=== PATIENT | male | born 1940 | race Caucasian/White ===

== ENCOUNTER → 2017-11-02 | Day surgery (SDC) | payer MEDICARE ==
[~2017-11-02] VITALS: Ht 170.2 cm; Wt 87.6 kg
[~2017-11-02] MED LIST: *RESP: ALBUTEROL 2.5 MG/3 ML NEB (PRN) PERIprocedural Use ONLY NEB ONE; ACETAMINOPHEN/HYDROcodone 325 MG/7.5 MG TAB ONE; ASPI1TAB57 PO; BUPIVACAINE/EPINEPHRINE 0.25% 50 ML VIAL ONE; BUPIVACAINE/EPINEPHRINE 0.5% PF 30 ML VIAL ONE; CHLORHEXIDINE GLUCONATE 0.12% 15 ML CUP ONE; CHLORHEXIDINE GLUCONATE 2 % 1 PACK (2 CLOTHS) TOPICAL PRN; CLINDAMYCIN 600 MG/NS 100 ML IV SCH; DEXAMETHASONE SOD PHOS 4 MG/ML VIAL IV ONE; DO NOT ADM ANY ANTICOAGULANT DRUGS PRN; FISH1200 PO; GABA300C5 PO; GLYCOPYRROLATE 1 MG/5 ML SYRINGE IV PUSH ONE; INSULIN HUMAN REGULAR 1,000 UNITS/10 ML VIAL SQ PRN; LACTATED RINGER'S 1000 ML INJ 1,000 ML IV ONE; LACTATED RINGER'S 1000 ML IV PRN; LIDOCAINE 2%/EPINEPHrine PF 1:200,000 20ML SDV ONE; LIDOCAINE HCL 1% PF 5 ML SYRINGE OTHER ONE; MELA5 PO; METO50TA PO; METOPROLOL TARTRATE 25 MG TAB PO PRN; OCUVTAB4 PO; ONDANSETRON HCL 4 MG/2 ML VIAL IV ONE; PHENYLEPH/NS 1000 MCG/10 ML SYR IV ONE; POVIDONE IODINE 5% (ANTISEPSIS KIT) 4 APPLICATIONS EACH NARE PRN; ROCURONIUM INJ 50 MG/5 ML SYRINGE IV PUSH ONE; SIMV20TA PO; SODI1TAB PO; SODIUM CHLORID 0.9% 500 ML IV PRN; SODIUM CHLORIDE 0.9% INJ 100 ML ONE; TERA5CAP3 PO
--- NOTE | 2017-11-02 12:03 | MH ---
cc: Onofre Quan DMD DATE OF ADMISSION: 11/02/2017 Mr. Sosa is a 77-year-old male who has two lesions on his lateral border of his tongue. The one on the left side is whitish on the left side of the lateral tongue, is smooth, flat, is about 5 cm x 1.5 cm. 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 The biopsy was done in 09/2017. Now we have waited for the site to heal completely, and now we are ready for the excision of this lesion. He also has another lesion that is similar in size, smaller, about 5 mm x 5 mm, which is also whitish on the right lateral border of the tongue. We will plan for the excisional biopsy of that lesion also today. Benefits, risks, indications of the procedure, procedure in detail, and the options of no treatment all discussed with this patient. Risks not limited to any postop pain, infection or bleeding; damage to the adjacent soft tissue, hard tissue; anesthesia complications; recurrence of the lesion; speech/sensory changes/motor changes of the tongue and soft tissues. All questions and concerns were addressed. PAST MEDICAL HISTORY: Hypertension, high cholesterol, kidney disease, history of shingles. PAST SURGICAL HISTORY: Gallbladder removal, heart surgery with stent placement, eye surgery. The left kidney was removed. History of kidney stones. Hernia repair. MEDICATIONS: Aspirin, terazosin, simvastatin, melatonin, gabapentin, triamcinolone acetonide, salt tablet, PreserVision and fish oil. ALLERGIES: TO PENICILLIN, LIPITOR. FAMILY HISTORY: Denied. Familial disease, unknown. ANESTHESIA PROBLEMS: Denied. AND DEVELOPMENT: Reports normal. INFECTIOUS DISEASE: Denied. AUTOIMMUNE DISORDERS: Denied. SOCIAL HISTORY: Reports living normally at home. No current tobacco use but smoked in the past. Denies any eating difficulties, any alcohol, or any drug use. REVIEW OF SYSTEMS: Weight 192 pounds, height 5 feet 10 inches. No significant weight loss. HEAD: Denies any headache, dizziness, any injury or seizures. EYES: He wears glasses. Denies any double vision, tearing or blind spots. NOSE: Denies any bleeding, obstruction, any discharges. MOUTH: Denies any dental difficulty, gingival bleeding or dentures. THROAT: Denies any hoarseness, soreness or any thyroid disease. LYMPH NODES: Denies any local glandular enlargement. RESPIRATORY: Denies any TB, any shortness of breath, any cough, asthma, COPD or sleep apnea. CARDIOVASCULAR: History of hypertension. Denies any pericardial pain, any murmurs. Denies any edema. Denies any rheumatic fever. History of heart surgery, stents placed 16-17 years ago. Reports sometimes shortness of breath on exertion. GASTROINTESTINAL: Gallbladder removed in 2003. Denies IBS, any peptic ulcer disease. GENITOURINARY: Reports history of kidney disease, kidney stones, kidney removed on the left side. Denies any UTI, any venereal disease. MUSCULOSKELETAL: Denies any pain, limitation in movement or muscular weakness. ENDOCRINE: Denies any diabetes mellitus, hormone therapy or any growth disturbances. HEMATOLOGIC: Denies any anemia, any bleeding tendency, any Rh incompatibilities. Takes baby aspirin and fish oil. NEUROLOGIC: Denies any sensory or motor disturbances. EXAMINATION: VITALS: Pulse is 67. Blood pressure is 168/96 with oxygen saturation of 97%. GENERAL: Alert, awake and oriented x 3, well-groomed male in no acute distress. HEAD: Normocephalic. He has got scars on the forehead secondary to shingles. EYES: Pupils equal, round, react to light and accommodation. Extraocular movements are intact. He wears glasses. NOSE: Symmetrical, the nares patent. MOUTH: Intraorally, tissues are pink, well perfused. He has this lesion, which is whitish on the left lateral border of the tongue. He also has tooth #20 that is also sharp. The lesion is smooth and flat. He is asymptomatic. The lesion is 5 cm x 1.5 cm, no tenderness to palpation, nonulcerated, well-circumscribed. 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 The right side, the lesion is approximately 5 mm x 5 mm, whitish, well circumscribed, slightly raised. Note that there was a biopsy that was done previously in 2010 also. NECK: Positive range of movement. No cam involvement. CARDIOVASCULAR: Regular rate, rhythm. RESPIRATORY: Clear to auscultation bilaterally. ABDOMEN: Not tender, nondistended, soft. GASTROINTESTINAL: Positive bowel sounds. EXTREMITIES: Positive range of movement upper extremities, lower extremities. NEUROLOGIC: Cranial nerves II through XII grossly intact. ELECTROCARDIOGRAM: Three-lead EKG in the office appears to show normal sinus rhythm. 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 The right lateral border also has a lesion, which is whitish and raised. Consider it possible hyperkeratosis. An immunofluorescence was done on the left side of the tongue. It came back as verrucoid hyperkeratosis, negative for indirect immunofluorescent antibody studies. PLAN: The plan is to excise the lesion completely on the left side with frozen and close it locally with advancement closure and then excision of the lesion on the right side, again with local closure. He is medically cleared for the procedure with intermediate risk from a cardiac standpoint. LEWIS Tracy/SHANTAL , 08:02 AM , 09:09 AM
[2017-11-02 14:24] LABS: AUTOMATED NEUTROPHIL # 4.4 TH/MM3 (1.8-7.7); BASOPHIL % 0.7 % (0.0-2.0); EOSINOPHIL # 0.4 TH/MM3 (0-0.4); HEMATOCRIT 43.6 % (39.0-51.0); HEMOGLOBIN 14.8 GM/DL (13.0-17.0); LYMPH % 20.9 % (9.0-44.0); LYMPHOCYTE # 1.5 TH/MM3 (1.0-4.8); MEAN CELL VOLUME 91.4 FL (80.0-100.0); MEAN CORPUSCULAR HEMOGLOBIN 31.1 PG (27.0-34.0); MEAN PLATELET VOLUME 9.5 FL (7.0-11.0); MONO % 9.2 % (0.0-8.0); MONOCYTE # 0.6 TH/MM3 (0-0.9); NEUT % 63.2 % (16.0-70.0); PLATELET COUNT 133 TH/MM3 (150-450); RED BLOOD COUNT 4.77 MIL/MM3 (4.50-5.90); RED CELL DISTRIBUTION WIDTH 13.5 % (11.6-17.2)
--- NOTE | 2017-11-02 17:00 | HHI.PR ---
Immediate Post Op Note Procedure Date: Nov 02, 2017 Pre Op Diagnosis: left lateral tongue- atypical/ verrucoid/papillary epithelial proliferation - archecutural dysplasia/scar - verrucous carcinoma right lateral tongue border - lesion c/w hyperkeratosis/ dysplasia Post Op Diagnosis: [place] Surgeon: Onofre Quan Ct Scan Technologist(s): froilan tobias Procedure: excision of lesion left lateral tongue - with frozen sections excision of lesion right lateral tongue Complications: none Specimen(s) removed: 2 permanent specimen/ and 7 frozen sections Estimated blood loss: 1cc Anesthesia: General, Local (2:lidocaine with 1:200,000 epi 5 cc; 0.5% buvipicanine with 1:200,000 epi 4cc) Drains: None Patient to: PACU Patient Condition: Good Date/Time of Procedure: SEE SURGICAL CARE RECORD Onofre Quan DMD Nov 02, 2017 17:00
[2017-11-02 18:05] VITALS: BP 156/85; PULSE 69; RESP 20; TEMP 97; O2SAT 92
--- NOTE | 2017-11-02 18:52 | MP ---
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 PROCEDURE: Excision of the lesions on the left lateral tongue with frozen section and then also excision of the lesion on the right lateral tongue. ANESTHESIA: General, also 2% lidocaine with 1:200,000 epinephrine approximately 5 mL, also at end of the procedure 0.5% bupivacaine with 1:200,000 epinephrine approximately 4 mL. SURGEON: Onofre Quan DMD ROAD DESIGN ENGINEER: Choco Diehl COMPLICATIONS: None. SPECIMENS: Two permanent specimens and 7 frozen sections on the left lateral tongue border. ESTIMATED BLOOD LOSS: 1 mL. DISPOSITION: Patient tolerated the procedure well, extubated and taken to the PACU. INDICATION FOR PROCEDURE: Mr. Sosa is a 77-year-old male that had this lesion on the left lateral border of the tongue approximately 5 cm by about 1 to 1.5 cm. Excisional biopsy was done on the left lateral border of the tongue secondary to this lesion that has been there for sometime, but secondary to his smoking, we proceeded to do an incisional biopsy of that and it came back as atypical varicoid papillary epithelial proliferation with some verrucous carcinoma. Pathology is recommended to excise this whole lesion. Also on the right lateral border it looks hyperkeratotic, small little area approximately 0.5 x 0.5 cm, so purpose of today is to excise the left lesion on the left side with frozen and then excise the lesion on the right side. Benefits, risks, indication of the procedure, procedure in detail and the options and the treatment including risks all discussed with this patient. Risks not limited to any postop pain, infection, bleeding, damage to the adjacent soft tissue, heart tissue, anesthesia complications, nerve involvement, taste alteration, tongue recontouring and any other procedures required. All questions and concerns were addressed and consent signed in the chart. PROCEDURE IN DETAIL: Patient was met perioperatively, past medical history was reviewed and updated, no change is noted. All questions and concerns was addressed. Patient was taken to operating room #9, placed on the table in supine position. He underwent intubation. At that time it was noted that patient had a lesion that is raised, whitish on the right arytenoid. We will plan for ENT's evaluation after this as an outpatient. All pressure points were padded and eyes were taped shut. At this time, a timeout was taken to identify the patient, the site, the procedure surgery and all were in agreement. Patient was draped in normal sterile fashion. Bite block was placed on the right side of the mouth. Back of throat was suctioned and moistened Ray-David was used as a throat pack. Peridex mouth rinse was down. Lidocaine 2% with 1:200,000 epinephrine was injected throughout the center part of the tongue and a 2-0 silk suture was placed so that we could pull the tongue out. Then, a marking pen used to outline the lesion on the left side and then now the remaining 2% lidocaine with 1:200,000 with epinephrine was injected on the left lateral border of the tongue, and then a new needle was used and more lidocaine was also injected on the right lateral side of the tongue. Once this was done, a 15-blade was used to excise the lesion on the left lateral border of the tongue. It was oriented to superior position with a 2-0 silk suture; 3 o'clock was short, 6 o'clock is long-short and 9 o'clock did not have any stitch. Frozen specimens were taken now, superoanterior, superior middle posterior and then inferior anterior, inferior middle posterior, and then 3 deep frozen anterior deep, middle deep and posterior deep. All came back clear by the pathologist. At this point undermined the areas around the tongue margins and then irrigated with Peridex once again, which was already done previously and then Bovie was used to just cauterize any small bleeders and the site was now closed with 3-0 Vicryl sutures in horizontal mattress. The incision of the right lateral border of tongue, a 15-blade was used to excise the lesion, Peridex rinse was used, Bovie was used to cauterize any bleeders and finally closed with a 3-0 chromic suture. Mouth was once again irrigated with Peridex solution. Back of throat was suctioned, the throat pack was removed, the bite block was removed, 0.5% bupivacaine with 1:200,000 epinephrine was now injected nerve block on the left side with area of the lesion on the left side of the tongue on the lateral border of the tongue and on the right lateral border of the tongue. Different needles were used throughout the procedure. Patient tolerated the procedure well, no complication noted, extubated and taken to the PACU. All sponge and needle counts were accounted for. Onofre Quan DMD RT/cc , 04:56 PM , 06:51 PM
--- NOTE | 2017-11-03 08:58 | EKG ---
Date Performed: 11/02/2017 Time Performed: 13:18:16 PTAGE: 77 years EKG: SINUS BRADYCARDIA WITH OCCASIONAL VENTRICULAR PREMATURE COMPLEXES POSSIBLE LEFT ATRIAL ENLA RGEMENT MODERATE T-WAVE ABNORMALITY, CONSIDER LATERAL ISCHEMIA ABNORMAL ECG PREVIOUS TRACING : 01/16/2012 21.54 Since the prior tracing, there has been no significant stiles DOCTOR: Rochelle Bettencourt Interpretating Date/Time 11/03/2017 08:55:37
== END | disposition home or self-care (01) ==
LOC: HSDC 12:49
PROVIDERS: ATTEND Dentist Oral and Maxillofacial Surgery
DX: K13.21 Leukoplakia of oral mucosa, including tongue (principal); I10 Essential (primary) hypertension; Z87.891 Personal history of nicotine dependence
CPT/HCPCS: 00170; 41110; 41120; 85025; 88305; 88331; 93005; 94640; J1100; J2370; J2405; J3010; J7120; J7613